=== PATIENT | male | born 1990 | race Caucasian/White ===

== ENCOUNTER 2020-07-10 07:59 | Emergency (ER) | payer MEDICAID, SELFPAY ==
[2020-07-10 08:07] VITALS: BP 100/64; PULSE 75; RESP 17; TEMP 36.8; O2SAT 100; BMI 21.2
--- NOTE | 2020-07-10 08:36 | ED.EYEPROB ---
HPI - Eye Problem General Chief complaint: Eye Problems Stated complaint: eye pain Time Seen by Provider: 07/10/20 08:18 Source: patient Mode of arrival: ambulatory Limitations: no limitations History of Present Illness HPI Narrative: Patient comes to emergency room complaining of left-sided eye irritation and pressure. Patient denies trauma, no discharge. Patient is not sure if something hurt his eye. Related Data Previous Rx's Medication Instructions Recorded erythromycin 0.5 inch OPHTHALMIC (EYE) TID #1 g 07/10/20 Allergies Allergy/AdvReac Type Severity Reaction Status Date / Time No Known Allergies Allergy Unverified 05/31/20 19:49 [No Known Allergies*] Review of Systems Review of Systems: Constitutional : No Weight loss, No Fever, No Chills, No Night Sweats, No Fatigue, No Malaise ENT/Mouth : No Hearing loss, No Ear Pain, No Nasal Congestion, No Sinus Pain, No Hoarseness, No sore throat, No Rhinorrhea, No Swallowing Difficulty Eyes: left-sided eye redness, erythema, pressure-like sensation, mild discharge Cardiovascular : No Chest Pain, No SOB, No Dyspnea on Exertion, No Orthopnea, No Edema, No Palpitations Respiratory : No Cough, No Sputum, No Wheezing, No Smoke Exposure, No Dyspnea Gastrointestinal : No Nausea, No Vomiting, No Diarrhea, No Constipation, No abdominal Pain, No Hematochezia, No Melena Genitourinary : no irregular bleeding, No Dysuria, No Urinary Frequency, No Hematuria, No Urinary Incontinence, No Urgency, No Flank Pain, No Urinary Flow Changes, No Hesitancy Musculoskeletal : No joint pain, No Myalgias, No Joint Swelling Skin : No Skin Lesions, No rash Neuro : No Weakness, No Numbness, No Paresthesias, No Loss of Consciousness, No Dizziness, No Headache Psych : No Anxiety/Panic, No Depression, No SI/HI/AH/VH, No Social Issues, Heme/Lymph: No Bruising, No Bleeding,No Lymphadenopathy Endocrine : No Polyuria, No Polydipsia, No Temperature Intolerance Constitutional : No Weight loss, No Fever, No Chills, No Night Sweats, No Fatigue, No Malaise Yes all other systems are reviewed and are negative [facility] Past Medical History Attestation statement: The following information was validated with the patient. Medical History No known health problems No known health problems Social History Social History Advance Directives: No Advance Directives Information Provided: No Physical Exam Vital Signs: Vital Signs: Vital Signs Temp Pulse Resp BP Pulse Ox 07/10/20 08:07 98.3 F 75 17 100/64 100 Body Mass Index 21.2 Appearance: Alert. Oriented X3. No acute distress. Eyes: Pupils equal, round and reactive to light. moderate erythema in the left eye, no discharge, fluorescein stain negative for corneal abrasions, pressure in right eye 17 mm Hg, pressure in left eye 19 mm Hg ENT: Pharynx normal. Neck: Normal inspection. Neck supple. No lymph nodes noted. No crepitus CVS: Normal heart rate and rhythm. Pulses normal. Normal S1 and S2 Respiratory: No respiratory distress. Breath sounds normal. No Wheezing. No rales Abdomen: Soft and nontender. No rigidity. No distention. good BS x4 Skin: Skin warm and dry. Normal skin color. Normal skin turgor. Extremities: No lower extremity edema. No lower extremity edema. No Lacerations. No Rash Neuro: Oriented X 3. No motor deficit. No sensory deficit. Moving all extermities. No slurred speech. Course Course Course Narrative: I discussed with the patient that he likely has conjunctivitis versus uveitis. Patient will try [id number] erythromycins ointment. Instructed to follow-up with his primary care physician Discharge Plan Discharge Clinical Impression: Acute conjunctivitis of left eye Qualifiers: Acute conjunctivitis type: unspecified Qualified Code(s): H10.32 - Unspecified acute conjunctivitis, left eye Patient Disposition: Home, Self-Care Instructions: Conjunctivitis (ED) Additional Instructions: Please follow-up with your primary care physician tomorrow. If you have any worsening or new symptoms, please return to the emergency room or call 911 Prescriptions: New erythromycin 5 mg/gram (0.5 %) ointment 0.5 inch ophthalmic (eye) TID Qty: 1 RF: 0
[2020-07-10] MEDS: Tetracaine HCl/PF 0.5% Oph Sol 4 ML DROPS 1 DROP EYE-BOTH (08:37)
[2020-07-10] MEDS: Fluorescein Sodium STRIP 1 STRIP EYE-BOTH (08:37)
== END 2020-07-10 09:15 | disposition home or self-care (01) ==
PROVIDERS: Emergency Provider Emergency Medicine
DX: H10.32 Unspecified acute conjunctivitis, left eye (principal)
CPT/HCPCS: 99283

== ENCOUNTER 2020-08-12 20:47 | Emergency (ER) | payer MEDICAID, SELFPAY ==
--- NOTE | 2020-08-12 21:53 | ED.GENADULT ---
HPI - General Adult General Chief complaint: Upper Respiratory Symptoms Stated complaint: THROAT PAIN Time Seen by Provider: 08/12/20 21:51 Source: patient and staff nurse midwife Mode of arrival: ambulatory Limitations: no limitations History of Present Illness HPI narrative: this is a 30-year-old male who presents with complaints of throat pain and associated dysphagia with subjective complaints of fevers and chills and denies any recent sick contacts or recent COVID-19 exposure or testing. He denies any other medical problems. Related Data Previous Rx's Medication Instructions Recorded erythromycin 0.5 inch OPHTHALMIC (EYE) TID #1 g 07/10/20 lidocaine HCl [Lidocaine Viscous] 15 ml MUCOUS MEMBRANE BID PRN #100 08/12/20 ml Allergies Allergy/AdvReac Type Severity Reaction Status Date / Time No Known Allergies Allergy Verified 08/12/20 23:02 [No Known Allergies*] Review of Systems Review of Systems: Pertinent positives and negatives as stated in HPI 10 point review of systems is otherwise negative. [facility] Past Medical History Source: nursing notes reviewed Medical History No known health problems No known health problems Social History Social History Advance Directives: No Physical Exam Vital Signs: Vital Signs: Last Vital Signs Pulse 77 08/12/20 22:59 Resp 16 08/12/20 22:59 Pulse Ox 100 08/12/20 22:59 Body Mass Index 20.7 VITAL SIGNS: Reviewed. GENERAL: Well developed, well nourished, in no acute distress. HEAD: Normocephalic/atraumatic, EYES: PERRLA, EOMI intact without pain, no nystagmus/pallor/icterus noted EARS: Ext canals without abnormality, TMs non-bulging and non-erythematous NOSE: Nares patent bilateral OROPHARYNX: There are vesicular lesions noted to the posterior pharynx as well as on the buccal mucosa and gums of the oral cavity with noted ulcerations on portions of the posterior gingiva on the left side, without noted tonsillar enlargement/erythema/exudates NECK: Supple, no adenopathy LUNGS: Normal breath sounds. No adventitious sounds or accessory muscle use. SpO2<> CARDIOVASCULAR: Regular rate and rhythm without noted murmurs, no JVD or lower extremity edema. ABDOMEN: Soft, non-tender, non-distended with bowel sounds. No rigidity. No guarding. No palpable masses or hernias noted MUSCULOSKELETAL: No tenderness, deformities, or effusions noted on gross inspection. EXTREMITIES: No cyanosis, clubbing or edema. SKIN: Inspection of the skin reveals no rashes, ulcerations, jaundice, pallor, or petechiae. NEUROLOGIC: Alert and oriented x 4. Strength and sensation to light touch were grossly intact x 4. Course Course Course Narrative: This is a 30-year-old male with history and clinical presentation most consistent with possible HSV and less likely herpangina or Coxsackie due to age of patient. Patient was discharged in stable condition with instructions to proceed to the pharmacy for prescribed oral lidocaine for symptom relief until resolution of the infectious process. Discharge Plan Discharge Clinical Impression: Herpes infection Patient Disposition: Home, Self-Care Instructions: Oral Herpes Simplex Virus Infections (ED) Additional Instructions: 1. Se le mtz proporcionado agnieszka receta para ayudar a cubrir la incomodidad que est? experimentando actualmente y deber? ir a la farmacia para recogerla. 2. El curso normal de esta infecci?n ser? de 7 a 10 d?as y, a partir de entonces, deber?a notar agnieszka mejor?a. 3. Contin?e bebiendo muchos l?quidos, especialmente agua. 4. Por favor, establezca atenci?n con un proveedor de atenci?n primaria para agnieszka reevaluaci?n. El paciente y / o la ankur reconocen que comprenden los resultados (seg?n corresponda), el diagn?stico, el plan de tratamiento, la necesidad de seguimiento y los s?ntomas que deber?an impulsar el regreso a la alton de emergencias. Prescriptions: New Lidocaine Viscous 2 % solution 15 ml mucous membrane BID PRN (Reason: pain) Qty: 100 RF: 0 No Action erythromycin 5 mg/gram (0.5 %) ointment 0.5 inch ophthalmic (eye) TID Qty: 1 RF: 0 Print Language: Finnish
[2020-08-12 22:59] VITALS: PULSE 77; RESP 16; O2SAT 100; BMI 20.7
--- NOTE | 2020-08-12 23:01 | PC.NURSE ---
Pt not triaged as of yet despite having been placed into a bed. This RN at bedside triaging pt. Continue to monitor.
--- NOTE | 2020-08-13 00:13 | PC.NURSE ---
Pt ready for discharge, this RN calling life sciences instructor for assistance. Awaiting life sciences instructor.
== END 2020-08-13 00:25 | disposition home or self-care (01) ==
PROVIDERS: Emergency Provider Student in an Organized Health Care Education/Training Program
DX: B00.9 Herpesviral infection, unspecified (principal); R07.0 Pain in throat; Z79.899 Other long term (current) drug therapy
CPT/HCPCS: 99283

== ENCOUNTER 2022-02-01 22:31 | Emergency (ER) | payer MEDICAID, SELFPAY ==
--- NOTE | ~2022-02-01 | XR_ITS ---
EXAMINATION: XR FOOT, LEFT CLINICAL INFORMATION: Left foot swelling. Pain. COMPARISON: None TECHNIQUE: AP, lateral, and oblique views of the left foot. FINDINGS: No fracture or dislocation. Alignment is maintained. Joint spaces are maintained. The soft tissues are unremarkable. No ankle joint effusion. Small plantar heel spur. XR/XR foot LT min 3V IMPRESSION: Small plantar heel spur. Otherwise unremarkable appearance of the left foot.
[2022-02-01 23:39] VITALS: BP 117/58; PULSE 82; RESP 20; TEMP 36.7; O2SAT 99; BMI 22.1
--- NOTE | 2022-02-02 02:06 | ED.LOWEXIN ---
HPI - Extremity Injury (Lower) General Chief Complaint: Extremity Injury, Lower Stated Complaint: L foot pain Source: patient Mode of arrival: ambulatory Limitations: language barrier History of Present Illness HPI Narrative: 31-year-old male presents with left ankle pain and swelling. Patient noted that his boot and sock was getting tight and noted swelling and discoloration to his lower extremity. Patient does not report any trauma or any other concerning symptoms. MD complaint: ankle injury and foot injury Onset (ago): day(s) (2) Injury: Left: ankle Type of Injury: unknown Severity: moderate Severity scale (1-10): 7 Relieving factors: nothing Exacerbating factors: weight bearing, movement and palpation Context: other (Unknown) Associated symptoms: swelling and unable to bear weight Other symptoms: none Related Data Previous Rx's Medication Instructions Recorded erythromycin 5 mg/gram (0.5 %) eye 0.5 inch OPHTHALMIC (EYE) TID #1 g 07/10/20 ointment lidocaine HCl 2 % mucosal solution 15 ml MUCOUS MEMBRANE BID PRN #100 08/12/20 (Lidocaine Viscous) ml cephalexin 500 mg capsule 500 mg PO Q12H 10 Days #20 cap 02/02/22 doxycycline monohydrate 100 mg 100 mg PO BID 14 Days #28 cap 02/02/22 capsule oxycodone 5 mg tablet 5 mg PO Q8H PRN 3 Days #9 tab 02/02/22 Allergies Allergy/AdvReac Type Severity Reaction Status Date / Time No Known Allergies Allergy Verified 02/01/22 23:47 [No Known Allergies*] Review of Systems Review of Systems: Constitutional: No Fever, No Chills ENT/Mouth: No Ear Pain, No Hoarseness, No sore throat Eyes: No Eye Pain, No Swelling, No Redness, No Foreign Body Cardiovascular: No Chest Pain, No SOB Respiratory: No Cough, No Dyspnea Gastrointestinal: No Nausea, No Vomiting, No Diarrhea, No abdominal Pain Genitourinary: No Dysuria, No Hematuria Musculoskeletal: positive left ankle pain, No Myalgias, No Joint Swelling Skin: No Skin lacerations, No rash Neuro: No Weakness, No Numbness, No Paresthesias, No Loss of Consciousness, No Dizziness, No Headache Psych: No Anxiety/Panic, No Depression Heme/Lymph: no easy bruising, no Lymphadenopathy Endocrine: No Polyuria, No Polydipsia Yes all other systems are reviewed and are negative [facility] Past Medical History Attestation statement: The following information was validated with the patient. Source: old records reviewed Medical History No known health problems No known health problems Social History Social History Advance Directives: No Advance Directives Information Provided: Yes Physical Exam Vital Signs: Vital Signs: Last Vital Signs Temp 98.1 F 02/01/22 23:39 Pulse 82 02/01/22 23:39 Resp 20 02/01/22 23:39 BP 117/58 L 02/01/22 23:39 Pulse Ox 99 02/01/22 23:39 BMI result Body Mass Index 22.1 Appearance: Alert. Oriented X3. No acute distress. Eyes: Pupils equal, round and reactive to light. ENT: Pharynx normal. Neck: Normal inspection. Neck supple. CVS: Normal heart rate and rhythm. Pulses normal. Respiratory: No respiratory distress. Breath sounds normal. Abdomen: Soft and nontender. Skin: Skin warm and dry. Normal skin color. Normal skin turgor. Extremities: No lower extremity edema. Full range of motion, flexion extension internal external rotation. Brisk capillary refill in equal pulses bilaterally. Swelling and erythema noted to the medial malleolar process. Neuro: No motor deficit. No sensory deficit. Cranial nerves 2-12 intact. Course Course Course Narrative: 31-year-old male presents with left ankle pain and swelling. X-rays completed while patient was in emergency department waiting room, negative for acute findings. Area is erythematous, warm to touch consistent with cellulitis. Will order labs, cultures, and ceftriaxone. 04:30 labs are unremarkable. CRP is elevated at 3.18. Will treat for cellulitis. Patient is not septic, does not fit criteria for admission. Patient was given detailed instructions on signs and symptoms indicating need for emergent intervention. Will give p.o. antibiotics and pain management. Patient will follow-up with primary care. Thank you for choosing this emergency department for evaluation. Please follow-up with primary care physician as needed. Return to the emergency department for any new, concerning, or worsening symptoms. MDM - Extremity Injury (Lower) MDM Narrative Medical decision making narrative: Cellulitis Differential Diagnosis Differential diagnosis: Likely ankle sprain and strain Medical Records Attestation: I reviewed the patient's medical records. Lab Data Attestation: I reviewed the patient's lab results. Result diagrams: 02/02/22 02:44 02/02/22 02:44 Labs: Lab Results 02/02/22 02/02/22 02/02/22 Range/Units 02:44 02:44 02:44 WBC 6.4 (4.8-10.8) X10*3/uL RBC 5.36 (4.60-5.80) X10*6/uL Hgb 13.8 L (14.0-18.0) g/dl Hct 43.4 (42.0-52.0) % MCV 81.0 (80.0-98.0) fL MCH 25.7 L (27.0-33.0) pg MCHC 31.8 (31.0-36.0) g/dl RDW 15.0 (11.0-16.0) % Plt Count 338 (160-400) X10*3/uL MPV 10.0 (9.4-12.4) fL Immature Gran % (Auto) 0.3 (0.0-0.4) % Neut % (Auto) 58.6 (45-73) % Lymph % (Auto) 28.8 (20-40) % Carlton % (Auto) 11.1 H (2-11) % Eos % (Auto) 0.9 (0-4) % Baso % (Auto) 0.3 (0-2) % Lymph # (Auto) 1.8 (1.2-4.9) X10*3/uL Carlton # (Auto) 0.7 (0.1-1.2) X10*3/uL Eos # (Auto) 0.1 (0.0-0.4) X10*3/uL Baso # (Auto) 0.0 (0.0-0.2) X10*3/uL Abs Immat Gran (auto) 0.02 (0.00-0.03) X10*3/uL Absolute Neuts (auto) 3.7 (2.0-8.3) x10*3/uL Absolute Nucleated RBC 0.000 (0.0-0.012) X10*3/uL Nucleated RBC % (auto) 0.0 (0.0-0.2) /100WBC ESR 9 (0-15) MM/HR Sodium 140 (135-145) mmol/L Potassium 4.3 (3.3-5.1) mmol/L Chloride 103 (96-108) mmol/L Carbon Dioxide 26 (22-29) mmol/L Anion Gap 15 (12-20) BUN 12 (9-16) mg/dL Creatinine 1.12 (0.5-1.4) mg/dL Estim Creat Clear Calc 93.6 Estimated GFR > 60 Random Glucose 90 (60-115) mg/dL Lactic Acid (0.5-2.0) mmol/L Calcium 9.5 (8.4-10.2) mg/dL Total Bilirubin 0.5 (0.0-1.0) mg/dL Direct Bilirubin 0.2 (0.0-0.5) mg/dL AST 27 (5-37) U/L ALT 39 (0-40) U/L Alkaline Phosphatase 89 (39-117) U/L C-Reactive Protein 3.18 H (< or = 0.50) mg/dL Total Protein 7.3 (6.5-8.0) g/dL Albumin 3.9 (3.5-5.0) g/dL Lipase 67 (8-78) U/L Influenza Type A (PCR) (Negative) Influenza Type B (PCR) (Negative) RSV RNA Qual (PCR) (Negative) SARS-CoV-2 RNA (RT-PCR) (Negative) 02/02/22 02/02/22 Range/Units 02:44 02:47 WBC (4.8-10.8) X10*3/uL RBC (4.60-5.80) X10*6/uL Hgb (14.0-18.0) g/dl Hct (42.0-52.0) % MCV (80.0-98.0) fL MCH (27.0-33.0) pg MCHC (31.0-36.0) g/dl RDW (11.0-16.0) % Plt Count (160-400) X10*3/uL MPV (9.4-12.4) fL Immature Gran % (Auto) (0.0-0.4) % Neut % (Auto) (45-73) % Lymph % (Auto) (20-40) % Carlton % (Auto) (2-11) % Eos % (Auto) (0-4) % Baso % (Auto) (0-2) % Lymph # (Auto) (1.2-4.9) X10*3/uL Carlton # (Auto) (0.1-1.2) X10*3/uL Eos # (Auto) (0.0-0.4) X10*3/uL Baso # (Auto) (0.0-0.2) X10*3/uL Abs Immat Gran (auto) (0.00-0.03) X10*3/uL Absolute Neuts (auto) (2.0-8.3) x10*3/uL Absolute Nucleated RBC (0.0-0.012) X10*3/uL Nucleated RBC % (auto) (0.0-0.2) /100WBC ESR (0-15) MM/HR Sodium (135-145) mmol/L Potassium (3.3-5.1) mmol/L Chloride (96-108) mmol/L Carbon Dioxide (22-29) mmol/L Anion Gap (12-20) BUN (9-16) mg/dL Creatinine (0.5-1.4) mg/dL Estim Creat Clear Calc Estimated GFR Random Glucose (60-115) mg/dL Lactic Acid 1.6 (0.5-2.0) mmol/L Calcium (8.4-10.2) mg/dL Total Bilirubin (0.0-1.0) mg/dL Direct Bilirubin (0.0-0.5) mg/dL AST (5-37) U/L ALT (0-40) U/L Alkaline Phosphatase (39-117) U/L C-Reactive Protein (< or = 0.50) mg/dL Total Protein (6.5-8.0) g/dL Albumin (3.5-5.0) g/dL Lipase (8-78) U/L Influenza Type A (PCR) NEGATIVE (Negative) Influenza Type B (PCR) NEGATIVE (Negative) RSV RNA Qual (PCR) NEGATIVE (Negative) SARS-CoV-2 RNA (RT-PCR) NEGATIVE (Negative) Imaging Data Left ankle x-ray: Attestation: I personally reviewed and interpreted this imaging study as follows: Radiologist's impression: EXAMINATION: XR FOOT, LEFT CLINICAL INFORMATION: Left foot swelling. Pain.? COMPARISON: None? TECHNIQUE: AP, lateral, and oblique views of the left foot. FINDINGS: No fracture or dislocation. Alignment is maintained. Joint spaces are maintained. The soft tissues are unremarkable. No ankle joint effusion. Small plantar heel spur. XR/XR foot LT min 3V IMPRESSION: Small plantar heel spur. Otherwise unremarkable appearance of the left foot. Discharge Plan Discharge Clinical Impression: Cellulitis Patient Disposition: Home, Self-Care Instructions: Cellulitis (ED) Additional Instructions: Le evaluaron por dolor en el tobillo saturnino. Las radiograf?as son negativas para hallazgos agudos. Te estamos tratando de celulitis. [place] doxiciclina 100 mg cada 12 horas tiana 14 d?as. [place] Keflex 500 mg cada 12 horas tiana 10 d?as. Use mangas largas y mant?ngalas mientras se expone a Whitlash. La doxiciclina tiene agnieszka reacci?n cut?stephanie significativa cuando se expone a la leslie solar. Le recet? oxicodona para el control del dolor. Audrey medicamento es un narc?aditi y tiene un alto riesgo de adicci?n y abuso. No conduzca ni maneje maquinaria mientras carlos audrey medicamento. Audrey medicamento puede causar somnolencia, retrasar el tiempo de reacci?n, aumentar el riesgo de ca?lerner y causar estre?imiento. Destini muchos l?quidos, considere MiraLax diariamente mientras carlos audrey medicamento para ayudar a ablandar las heces. Debe realizar un seguimiento con el m?dico de atenci?n primaria. Si los s?ntomas empeoran, regrese. Yesika por elegir audrey departamento de emergencias para pressley evaluaci?n. Por favor, smitha un seguimiento con el m?dico de atenci?n primaria seg?n sea necesario. Regrese al departamento de emergencias por cualquier s?ntoma nuevo, preocupante o que empeore. You were evaluated for left ankle pain. X-rays are negative for acute findings. We are treating you for cellulitis. Please take doxycycline 100 mg every 12 hours for 14 days. Please take Keflex 500 mg every 12 hours for 10 days. Please wear long sleeves and had while exposing yourself to [place]. Doxycycline has a significant skin reaction when exposed to sunlight. I prescribed oxycodone for pain management. This medication is a narcotic and is high risk for addiction and abuse. Do not drive or operate machinery while taking this medication. This medication can cause drowsiness, delay reaction time, increased risk for falls, and cause constipation. Drink plenty of fluids, consider MiraLax daily while taking this medication to help soften stools. You must follow-up with primary care physician. If symptoms worsen please return. Thank you for choosing this emergency department for evaluation. Please follow-up with primary care physician as needed. Return to the emergency department for any new, concerning, or worsening symptoms. Prescriptions: New doxycycline monohydrate 100 mg capsule 100 mg PO BID 14 Days Qty: 28 0RF cephalexin 500 mg capsule 500 mg PO Q12H 10 Days Qty: 20 0RF oxycodone 5 mg tablet 5 mg PO Q8H PRN (Reason: pain) 3 Days Qty: 9 0RF No Action erythromycin 5 mg/gram (0.5 %) ointment 0.5 inch ophthalmic (eye) TID Qty: 1 0RF Lidocaine Viscous 2 % solution 15 ml mucous membrane BID PRN (Reason: pain) Qty: 100 0RF Rx Instructions: 15ml, swish and spit Referrals: [facility] [Primary Care Provider] - Stand Alone Forms: Work/School Release
[2022-02-02 02:50] LABS: MANUAL DIFF FLAG NO
[2022-02-02 02:51] LABS: Basophils Percent Auto 0.3 % (0-2); Eosinophils Absolute Auto 0.1 X10*3/uL (0.0-0.4); Eosinophils Percent Auto 0.9 % (0-4); Hematocrit 43.4 % (42.0-52.0); Hemoglobin 13.8 g/dl (14.0-18.0); Imm Gran Abs Auto 0.02 X10*3/uL (0.00-0.03); Imm Gran Pct Auto 0.3 % (0.0-0.4); Lymphocytes Absolute Auto 1.8 X10*3/uL (1.2-4.9); Lymphocytes Percent Auto 28.8 % (20-40); Mean Corpuscular HGB Conc 31.8 g/dl (31.0-36.0); Mean Corpuscular Hemoglobin 25.7 pg (27.0-33.0); Monocytes Absolute Auto 0.7 X10*3/uL (0.1-1.2); Monocytes Percent Auto 11.1 % (2-11); Neutrophils Absolute Auto 3.7 x10*3/uL (2.0-8.3); Neutrophils Percent Auto 58.6 % (45-73); Platelet Count 338 X10*3/uL (160-400); Red Blood Count 5.36 X10*6/uL (4.60-5.80); White Blood Count 6.4 X10*3/uL (4.8-10.8)
[2022-02-02] MEDS: cefTRIAXone sodium 1 GM in 0.9 % Sodium Chloride 50 ML IV (02:56)
[2022-02-02] MEDS: 0.9 % Sodium Chloride 1,000 ML 999 ML IVCONT (02:57)
[2022-02-02 03:05] LABS: Lactic Acid 1.6 mmol/L (0.5-2.0)
[2022-02-02 03:11] LABS: Alanine Aminotransferase 39 U/L (0-40); Albumin Level 3.9 g/dL (3.5-5.0); Alkaline Phosphatase 89 U/L (39-117); Anion Gap 15 (12-20); Aspartate Amino Transferase 27 U/L (5-37); Bilirubin Direct 0.2 mg/dL (0.0-0.5); Bilirubin Total 0.5 mg/dL (0.0-1.0); Blood Urea Nitrogen 12 mg/dL (9-16); C Reactive Protein 3.18 mg/dL (< or = 0.50); Calcium 9.5 mg/dL (8.4-10.2); Carbon Dioxide 26 mmol/L (22-29); Chloride 103 mmol/L (96-108); Creatinine Clr Calc Pharmacy 93.6; Estimated Glomerular Filt Rate > 60; Glucose Random 90 mg/dL (60-115); Lipase 67 U/L (8-78); Potassium 4.3 mmol/L (3.3-5.1); Sodium 140 mmol/L (135-145); Total Protein 7.3 g/dL (6.5-8.0)
[2022-02-02 03:23] LABS: Erythrocyte Sedimentation Rate 9 MM/HR (0-15)
[2022-02-02 03:30] LABS: Influenza A PCR NEGATIVE (Negative); Influenza B PCR NEGATIVE (Negative); Resp Syncy Virus RNA Qual PCR NEGATIVE (Negative); SARS COV2 PCR INHOUSE NEGATIVE (Negative)
[2022-02-02] MEDS: oxyCODONE HCl Immed Release 5 MG TABLET PO (04:41)
== END 2022-02-02 05:08 | disposition home or self-care (01) ==
PROVIDERS: Nurse Practitioner Family; Emergency Provider Internal Medicine
DX: L03.116 Cellulitis of left lower limb (principal); M79.672 Pain in left foot; Z20.822 Contact with and (suspected) exposure to COVID-19
CPT/HCPCS: 0241U; 36415; 73630; 80048; 80076; 83605; 83690; 85025; 85652; 86140; 87040; 96365; 99282; 99284; J0696

== ENCOUNTER 2022-02-09 14:38 | Emergency (ER) | payer MEDICAID, SELFPAY ==
[2022-02-09 15:34] VITALS: BP 126/48; PULSE 78; RESP 18; TEMP 36.8; O2SAT 100; BMI 23.6
--- NOTE | 2022-02-09 15:49 | ED.LOWEXIN ---
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 Patient states that he was seen a week ago for an infection in his left lower leg and now he is concerned that he may have a blood clot. Patient denies any dizziness, lightheadedness, abdominal pain, nausea, vomiting, fever, chills, blurry vision, double vision, loss of vision, chest pain, difficulty breathing, shortness of breath, back pain, night sweats, pain with urination, increased urinary frequency, increased urinary urgency, blood in his urine or stool, syncope or a near syncopal episode, recent trauma or falls, bowel incontinence, bladder incontinence, bowel retention, bladder retention, or any other complaints at this time. Related Data Previous Rx's Medication Instructions Recorded erythromycin 5 mg/gram (0.5 %) eye 0.5 inch OPHTHALMIC (EYE) TID #1 g 07/10/20 ointment lidocaine HCl 2 % mucosal solution 15 ml MUCOUS MEMBRANE BID PRN #100 08/12/20 (Lidocaine Viscous) ml cephalexin 500 mg capsule 500 mg PO Q12H 10 Days #20 cap 02/02/22 doxycycline monohydrate 100 mg 100 mg PO BID 14 Days #28 cap 02/02/22 capsule oxycodone 5 mg tablet 5 mg PO Q8H PRN 3 Days #9 tab 02/02/22 Allergies Allergy/AdvReac Type Severity Reaction Status Date / Time No Known Allergies Allergy Verified 02/09/22 15:34 [No Known Allergies*] Review of Systems Constitutional: Constitutional: Reports no additional constitutional complaints, Denies chills, Denies fever(s) and Denies night sweats Eyes: Eyes: Reports no additional eye complaints, Denies blurry vision, Denies change in vision, Denies diplopia, Denies eye discharge, Denies loss of vision and Denies eye pain ENT: Denies dizziness Cardiovascular: Cardiovascular: Reports no additional cardiovascular complaints, Denies chest pain, Denies lightheadedness, Denies Loss of Consciousness and Denies dyspnea Respiratory: Respiratory: Reports no additional respiratory complaints and Denies dyspnea Gastrointestinal: Gastrointestinal: Reports no additional gastrointestinal complaints, Denies abdominal pain, Denies melena, Denies hematochezia, Denies change in bowel habits and Denies change in stool character Genitourinary: Genitourinary: Reports no additional male genitourinary complaints, Denies hematuria, Denies oliguria, Denies difficulty urinating, Denies dysuria, Denies urinary frequency, Denies urinary hesitancy, Denies urinary incontinence and Denies urinary urgency Musculoskeletal: Musculoskeletal: Reports no additional musculoskeletal complaints, Denies numbness and Denies tingling Neurologic: Denies dizziness, Denies loss of vision, Denies numbness and Denies tingling Psychiatric: Psychiatric: Reports no additional psychiatric complaints Endocrine: Endocrine: Reports no additional endocrine complaints Hematologic/Lymphatic: Hematologic/Lymphatic: Reports no additional hematologic/lymphatic complaints Allergic/Immunologic: Allergic/Immunologic: Reports no additional allergic/immunologic complaints [facility] Past Medical History Attestation statement: The following information was validated with the patient. Source: old records reviewed Medical History No known health problems No known health problems Social History Social History Advance Directives: No Advance Directives Information Provided: No Physical Exam Vital Signs: Vital Signs: Last Vital Signs Temp 98.3 F 02/09/22 15:34 Pulse 78 02/09/22 15:34 Resp 18 02/09/22 15:34 BP 126/48 L 02/09/22 15:34 Pulse Ox 100 02/09/22 15:34 BMI result Body Mass Index 23.6 Const: General: cooperative, no acute distress, alert and awake Nutritional Appearance: well nourished Orientation/consciousness: patient oriented x3 Limitations: no limitations HEENT: Head: Yes normal to inspection and Yes atraumatic Ears: hearing grossly normal bilaterally and external ears normal General nose exam: Normal external nose present, no nasal discharge noted and no epistaxis Face and sinus: Yes normal facial exam, No abrasion and No laceration Mouth: Normal oral and palatal mucosa present, no drooling and no muffled voice Eyes: General: appearance normal, both eyes and all related structures Periorbital: periorbital findings normal Eyelids: Yes eyelids normal Conjunctivae: conjunctivae normal Pupils: Equal, round and reactive pupils present EOM: EOMs intact bilaterally Neck: Neck: Yes normal visual inspection, Yes full ROM and Yes no lymphadenopathy Chest: Chest palpation & inspection: normal inspection of the chest Resp: Effort & Inspection: normal respiratory effort and able to speak in complete sentences Auscultation: clear to auscultation bilaterally Cardio: Rate: regular rate Rhythm: regular rhythm GI: Inspection: Yes normal to inspection Neuro: General: patient oriented x3 and moves all extremities Cranial nerves: Yes Equal, round and reactive pupils present Cognition (Neuro): normal cognition Motor exam (neuro): 5/5 motor strength present throughout Sensory Exam: Normal double simultaneous stimulation for sensation Coordination: [id number] test normal Extrem: General: Yes normal to inspection, Yes full ROM and Yes capillary refill normal Psych: Appearance: grossly normal Mental Status: mental status grossly normal Affect: normal affect Attitude: cooperative Thought process: Normal thought process present Thought content: Normal thought content present Insight: Good insight present (Psych) MDM - Extremity Injury (Lower) MDM Narrative Medical decision making narrative: Patient is a 31 year old male presenting to the emergency department today concerned of a blood clot in his left leg. Patient's physical exam was unremarkable. Patient's left lower leg had no signs of an acute DVT. Patient's left lower leg cellulitis as previously documented is resolved. Patient has no warmth, swelling, or redness to the left lower leg. I explained my physical exam findings to the patient. I answered all questions asked by the patient. I stressed the importance of the patient finishing his previously prescribed abx. I stressed the importance of the patient taking his medication as prescribed. I stressed the importance of the patient following up with his primary care provider. I stressed the importance of the patient returning to the emergency department immediately if his symptoms were to worsen or if he were to develop any dizziness, shortness of breath, difficulty breathing, chest pain, blurry vision, loss of vision, nausea, vomiting, abdominal pain, fever, chills, back pain, or any other complaints. Patient verbalized agreement and understanding with this treatment plan and discharge. Medical Records Attestation: I reviewed the patient's medical records. Discharge Plan Discharge Clinical Impression: Cellulitis Patient Disposition: Home, Self-Care Instructions: Cellulitis (DC) Additional Instructions: Follow up with your primary care provider. Return to the emergency department immediately if your symptoms worsen or if you develop any dizziness, shortness of breath, difficulty breathing, chest pain, blurry vision, loss of vision, nausea, vomiting, abdominal pain, fever, chills, back pain, or any other complaints. Prescriptions: No Action erythromycin 5 mg/gram (0.5 %) ointment 0.5 inch ophthalmic (eye) TID Qty: 1 0RF Lidocaine Viscous 2 % solution 15 ml mucous membrane BID PRN (Reason: pain) Qty: 100 0RF Rx Instructions: 15ml, swish and spit doxycycline monohydrate 100 mg capsule 100 mg PO BID 14 Days Qty: 28 0RF cephalexin 500 mg capsule 500 mg PO Q12H 10 Days Qty: 20 0RF oxycodone 5 mg tablet 5 mg PO Q8H PRN (Reason: pain) 3 Days Qty: 9 0RF Referrals: [facility] [Primary Care Provider] - Interventions: ED Discharge Assessment Last Done: 02/09/22 16:16 Discharge Date/Time: 02/09/22 16:17 Print Language: German
== END 2022-02-09 16:17 | disposition home or self-care (01) ==
PROVIDERS: Emergency Provider Emergency Medicine
DX: L03.116 Cellulitis of left lower limb (principal); R60.0 Localized edema; Z79.899 Other long term (current) drug therapy
CPT/HCPCS: 99282